=== PATIENT | female | born 1980 | race Asian ===

== ENCOUNTER 2020-05-15 11:19 | Emergency (ER) | payer SELFPAY ==
[~2020-05-15] VITALS: Ht 157.5 cm; Wt 63.6 kg
[2020-05-15] MEDS ORDERED: IBUP-1506 PO (11:23)
[2020-05-15] MEDS ORDERED: ACETAMINOPHEN 500 MG TABLET PO ONE (12:00)
[2020-05-15] MEDS ORDERED: ONDANSETRON HCL 4 MG/2 ML VIAL IVP ONE (12:00)
[2020-05-15] MEDS ORDERED: SODIUM CHLORIDE 0.9% 1,000 ML IV ONE (12:00)
[2020-05-15 12:38] LABS: APPEARANCE,URINE CLEAR (CLEAR); BILIRUBIN,URINE NEGATIVE (NEGATIVE); GLUCOSE, URINE (UA) NEGATIVE (NEGATIVE); KETONES,URINE NEGATIVE (NEGATIVE); LEUKOCYTE ESTERASE ,URINE TRACE (NEGATIVE); NITRATE,URINE NEGATIVE (NEGATIVE); OCCULT BLOOD,URINE NEGATIVE (NEGATIVE); PH,URINE 5.5 (5.0-8.0); PROTEIN,URINE NEGATIVE (NEGATIVE); UROBILINOGEN,URINE 0.2 mg/dL (<=1.0)
[2020-05-15 12:49] LABS: RBC,URINE None Seen /HPF (0-2)
[2020-05-15 12:50] LABS: BACTERIA,URINE Rare /HPF (None Seen); SQUAMOUS EPITHELIAL CELL,UR Few /LPF (None Seen)
[2020-05-15] MEDS ORDERED: CefTRIAXone 1 GM/DEXTROSE 50 ML IV ONE (13:45)
[2020-05-15 14:15] VITALS: BP 124/67
== END 2020-05-15 15:02 | disposition home or self-care (01) ==
LOC: EMS 11:21
DX: N39.0 Urinary tract infection, site not specified (principal); J02.9 Acute pharyngitis, unspecified; R11.2 Nausea with vomiting, unspecified; Z20.828 Contact with and (suspected) exposure to other viral communicable diseases
CPT/HCPCS: 71045; 81001; 87077; 87086; 87430; 96361; 96365; 96375; 99285; J0696; J2405; J7030; U0003